=== PATIENT | male | born 1980 | race African-American/Black ===

== ENCOUNTER 2016-06-30 09:14 | Emergency (ER) | payer OTHER ==
[~2016-06-30] VITALS: Ht 170.2 cm; Wt 90.7 kg
[2016-06-30 09:53] LABS: ABSOLUTE NEUTROPHILS 3.4 thou/uL (1.4-8.2); BASOPHILS 0.8 % (0.0-2.0); EOSINOPHILS 2.2 % (0.0-3.0); HEMATOCRIT 41.9 % (42.0-52.0); HEMOGLOBIN 13.9 gm/dL (14.0-18.0); LYMPHOCYTES 28.8 % (24.0-44.0); MCH 27.8 pg (26.0-34.0); MCHC 33.2 % (28.0-37.0); MCV 83.8 fL (80.0-100.0); MONOCYTES 8.5 % (1.0-8.0); PLATELET COUNT 247 thou/uL (150-400); POLYS 59.7 % (36.0-66.0); RBC 5.01 mil/uL (4.50-6.00); RDW 13.2 % (10.5-14.5); WBC 5.8 thou/uL (4.0-11.0)
[2016-06-30 09:55] LABS: MANUAL DIFF NO
[2016-06-30 10:09] LABS: CALCIUM 9.4 mg/dL (8.5-10.1); CREATININE 1.1 mg/dL (0.6-1.3); POTASSIUM 4.7 mmol/L (3.5-5.1)
[2016-06-30] MEDS ORDERED: NORCO 5-325 TA1 EACH PO (10:34)
[2016-06-30] MEDS ORDERED: CYCLOBENZAPRINE10 MG PO (10:36)
[2016-06-30] MEDS ORDERED: HYDROCODONE-ACE15 M1 PO (10:49)
[2016-06-30 10:50] VITALS: BP 129/54
== END 2016-06-30 10:54 | disposition home or self-care (01) ==
LOC: ER 09:14
PROVIDERS: Physician Assistant
DX: M54.2 Cervicalgia (principal); F10.99 Alcohol use, unspecified with unspecified alcohol-induced disorder